=== PATIENT | female | born 1995 | race Caucasian/White ===

== ENCOUNTER → 2017-03-07 | Outpatient (CLI) | payer BC | END | disposition home or self-care (01) | LOC: KCIC CT 12:09 | DX: J01.91 Acute recurrent sinusitis, unspecified (principal); M27.40 Unspecified cyst of jaw | CPT/HCPCS: 70486 ==

== ENCOUNTER → 2018-01-10 | Outpatient (CLI) | payer BC ==
--- NOTE | 2018-01-10 15:09 | KCIC ---
CHEST PA LATERAL dated 01/10/2018 12:00 AM. Comparison: None. Clinical Indication: Recurrent sinusitis, COUGH Findings: PA and lateral views of the chest were obtained. Heart and mediastinal contours within normal limits. Lungs are clear without focal consolidation. Vascular interstitium within normal limits. No pleural effusion or pneumothorax. Impression: No acute radiographic abnormality. Electronically signed by: Dexter Vicente MD (01/10/2018 3:06 PM) [id number]
--- NOTE | 2018-01-10 15:55 | KCIC ---
CT MAXILLOFACIAL WO CONTRAST dated 01/10/2018 2:30 PM Indication: Recurrent sinusitis. [place] protocol, cough and drainage Comparison: No comparison is available. Technique: Contiguous axial imaging the maxillofacial bones obtained with thin cut coronal and sagittal reconstruction. One or more of the following individualized dose reduction techniques were utilized for this examination: 1. Automated exposure control 2. Adjustment of the mA and/or kV according to patient size 3. Use of iterative reconstruction technique Findings: There are postsurgical changes of the medial maxillary [place] with wide indication screening the ethmoid and maxillary sinuses and nasal cavity. There is moderate mucosal thickening of the bilateral maxillary sinus with prominent mucous retention cyst or polyp inferiorly on the left. There is mild mucosal thickening of the bilateral nasal turbinates which are somewhat small in size and likely partially resected. The sphenoid and frontal sinuses are clear. Nasal septum is near midline. No bony destructive process or periostitis. Mastoid air cells and middle ears are clear. Visualized soft tissue structures unremarkable. Limited imaged portions the brain parenchyma unremarkable. IMPRESSION: 1. Moderate mucosal thickening of the bilateral maxillary sinus with prominent mucous retention cyst or polyp inferiorly on the left. 2. Postsurgical changes as described. Electronically signed by: Dexter Vicente MD (01/10/2018 3:52 PM) [id number]
== END | disposition home or self-care (01) ==
LOC: KCIC CT 14:14
PROVIDERS: ATTEND Otolaryngology
DX: J01.01 Acute recurrent maxillary sinusitis (principal); Z98.890 Other specified postprocedural states
CPT/HCPCS: 70486; 71046